=== PATIENT | female | born 1955 | race Caucasian/White ===

== ENCOUNTER 2019-05-09 09:24 | Inpatient (IN) ==
[2019-05-09] MEDS ORDERED: *HR* Rocuronium Bromide 50 MG/5 ML VIAL ONE (09:50)
[2019-05-09] MEDS ORDERED: Lidocaine -MPF 2% 2 ML VIAL ONE (09:50)
[2019-05-09] MEDS ORDERED: Lidocaine -MPF 4% 5 ML AMPUL ONE ×2 (09:50→10:14)
[2019-05-09] MEDS ORDERED: *HR* Midazolam HCl 2 MG/2 ML VIAL ONE (09:51)
[2019-05-09] MEDS ORDERED: *HR* FentaNYL (PF) 100 MCG/2 ML VIAL ONE (09:51)
[2019-05-09] MEDS ORDERED: *HR* Propofol 200 MG/20 ML VIAL IVP ONE (09:52)
--- NOTE | 2019-05-09 09:52 | Anesthesia Evaluation PreOp ---
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: Denies Any Significant HX Other Medical History: Diabetes Type II Anesthesia History: No Prior Anesthetic Complications, Past Anesthesia Alcohol Use: occasionally Drug use: none Medications and Allergies Albuterol Sulfate [Proair Hfa] 2 inh PO Q6H PRN 04/09/16 [History] Aspirin 81 mg PO DAILY 04/09/16 [History] NIFEdipine [Procardia] 10 mg PO DAILY 04/09/16 [History] metFORMIN [Glucophage] 1,000 mg PO BID 04/09/16 [History] Tiotropium [Spiriva] 18 mcg IH DAILY 06/08/16 [History] Albuterol Neb 05/09/18 [History] Amitriptyline 05/09/18 [History] Glycerin/Min Oil/Polycarbophil [Replens Vaginal Applicator] 1 appl VG 3XW #1 bottle 08/22/18 [Rx] Amoxicillin [Amoxil] 500 mg PO Q8HR #30 capsule 04/07/19 [Rx] Allergy/AdvReac Type Severity Reaction Status Date / Time Erythromycin Base Allergy Palpitations, Verified 05/09/19 09:57 HEART RACED guaifenesin [From Mucinex] Allergy "NOSE Verified 05/09/19 09:57 FALLING OFF" latex Allergy Rash Verified 05/09/19 09:57 promethazine [From Phenergan] Allergy UNKNOWN Verified 05/09/19 09:57 sulfamethoxazole Allergy UNKNOWN Verified 05/09/19 09:57 [From Bactrim] trimethoprim [From Bactrim] Allergy UNKNOWN Verified 05/09/19 09:57 valacyclovir [From Valtrex] Allergy Hives Verified 04/07/19 08:09 pseudoephedrine AdvReac FELT Verified 05/09/19 09:57 [From Sudafed] "GOOFY" - Meds/Allergy Pre-op Review Medications Reviewed: Yes Allergies Reviewed: Yes Beta Blockers on Current Med List: No Anesthesia Results - Labs Laboratory Tests 03/26/19 04/24/19 04/24/19 13:51 07:30 07:34 WBC 9.6 Hgb 13.7 Hct 41.9 Plt Count 286 PT 14.0 H INR 1.2 Sodium 140 Potassium 4.1 BUN 13 Creatinine 0.68 - Imaging EKG: report reviewed (03/26/2019 SINUS RHYTHM) Additional studies: 03/25/[address] IMPRESSION: Enlarging spiculated left upper lobe nodule, measuring 1.0 x 0.9 x 1.0 cm, concerning for primary bronchogenic carcinoma. PET/CT and/or tissue sampling is recommended. No evidence of intrathoracic lymphadenopathy. Anesthesia Exam O2 Sat Height 1.55 m Weight 65.317 kg O2 Sat by Pulse Oximetry 96 Vital Signs Temp Pulse Resp BP Pulse Ox 98 F 98 16 89/56 96 05/09/19 10:02 05/09/19 10:02 05/09/19 10:02 05/09/19 10:02 05/09/19 10:02 Blood Glucose* 150 Height: 5'1'' Weight: 144 lbs NPO (# of Hours): 8 Pain Scale: 0 Pain Scale Used: Numeric (1 - 10) - HEENT Pupil (Motor): EOMI Mallampati: II Teeth: Poor dentition Oral Opening: Greater than 3 - LENS COATING TECHNICIAN LOC: Oriented LENS COATING TECHNICIAN Motor: Normal RUE, Normal LUE, Normal RLE, Normal LLE, Normal Face LENS COATING TECHNICIAN Sensory: Normal: RUE, LUE, RLE, LLE, Face - Cardiac Rhythm: Regular Murmur: None - Pulmonary Breath Sounds: bilateral Clear Respiratory Effort: Symmetrical Anesthesia Assess/Plan ASA Score: 3 Level of consciousness: Cooperative, Oriented, Tranquil Anesthetic Plan: General Monitoring Plan: Standard Monitors Recovery Plan: PACU
[2019-05-09] MEDS ORDERED: Dexamethasone 4 MG/ML VIAL ONE (09:54)
[2019-05-09] MEDS ORDERED: CeFAZolin Syr 2,000MG/20 ML 2,000 MG/20 ML SYRINGE IVPB ONE (10:05)
[2019-05-09] MEDS ORDERED: Albuterol 2.5 MG/3 ML NEBULIZER IH ONE (10:05)
[2019-05-09] MEDS ORDERED: Acetaminophen IV 1,000 MG/100 ML INFUS..BTL ONE (10:09)
--- NOTE | 2019-05-09 10:09 | History & Physical Report ---
Date of Encounter: 05/09/19 Time of Encounter: 10:09 24 Hour HP Update - Instructions Instructions: If the History and Physical is less than 30 days old and was completed prior to A.M. admission and or procedure and has NOT been updated on calendar day of procedure please complete this update prior to performing procedure. - Update Patient reports changes in Medical Condition: No Changes in examination, assessment, or condition: No Changes in Medication: No Preop tests/diagnostics Reviewed: Yes Pre-Op MRSA Screen: Negative Surgery Remains Indicated: Yes Consent for Planned Operative Procedure(s) Verified: Yes - Pre-Operative Checklist Preoperative Checklist Indicated: Yes Prophylactic Antibiotic Ordered: Yes Home Medications Include Beta Blas: No Beta Blas Taken Today (Day of Surgery): No Beta Blas Taken Yesterday (Day Prior to Surgery): No Is VTE Prophylaxis Indicated?: Yes
[2019-05-09] MEDS ORDERED: Albuterol 2.5 MG/3 ML NEBULIZER ONE (10:10)
[2019-05-09] MEDS ORDERED: *HR* OxyCODONE Immed Rel 5 MG TABLET PO PRN (10:11)
[2019-05-09] MEDS ORDERED: Ringers Solution, Lactated 1,000 ML IVC SCH (10:15)
[2019-05-09] MEDS ORDERED: *HR* PHENYLEPHRINE 1,000 MCG/10 ML SYRINGE IVP ONE ×2 (11:14→11:46)
[2019-05-09] MEDS ORDERED: EPHEDrine 50 MG/ML VIAL ONE (11:18)
[2019-05-09] MEDS ORDERED: *HR* Vasopressin 20 UNIT/ML VIAL ONE (11:50)
[2019-05-09] MEDS ORDERED: Ketorolac 30 MG/ML VIAL ONE (12:22)
--- NOTE | 2019-05-09 13:12 | Operative Note ---
Date of procedure: 05/09/19 Pre-op diagnosis: c34.12 Post-op diagnosis: same Procedure: bronch with aspir, robotic wedge, lobe, node disseciton Anesthesia: GETA Local Anesthetics: 0.5% Sensorcaine HCL SubQ (cc) Surgeon: Lokesh Johnston Was there an assistant front office manager present: No Estimated blood loss (cc): 10 Specimen: wedge, lobe, nodes [id number]. Condition: stable Disposition: PACU Procedure in Detail: The patient was brought to the operating room and placed on the operating table in the supine position. After undergoing general anesthesia with sequential compressive devices on bilateral lower extremities and perioperative antibiotics on board, bronchoscopy was performed and extremely thick copious secretions which clogged the endotracheal tube and the camera were removed until clear. Were no abnormal branching patterns of the tracheobronchial tree and no obstructing masses. Patient was placed on the operating room table in the right lateral decubitus position with care to pad all pressure points. Prepped and draped in the usual sterile fashion. Thoracoscopy ports were placed, and the da Gabi robot was docked. A wedge resection of the left upper lobe to include the new mass was obtained with intraoperative frozen sections demonstrating non- small cell lung cancer. From this point artery bronchus vein and fissure completed with the endothoracic stapler and the remaining lobe removed. The inferior pulmonary ligament was mobilized. Lymph nodes were were removed from stations 5, 6, 10, 8. No stasis and pneumostasis was excellent fibrillar was placed over the staple line. Paravertebral nerve blocks performed. A 28-[place] chest tube placed through the most anterior thoracoscopy incision after de- docking the robot. Remaining incisions were closed 0 Vicryl and 4-0 Monocryl subcuticular stitches with dressings consisting of Steri-Strips and sterile gauze. Chest tube was secured and to place with a #2 Ethibond suture. Patient was extubated and taken to the recovery room.
[2019-05-09] MEDS: *HR* HYDROmorphone (PF) 1 MG/ML SYRINGE IVP PRN ×2 (13:33→13:38)
[2019-05-09] MEDS ORDERED: Naloxone 0.4 MG/ML INJ IVP PRN (15:27)
[2019-05-09] MEDS ORDERED: Ondansetron 4 MG/2 ML VIAL IVP PRN (15:27)
--- NOTE | 2019-05-09 16:35 | Anesthesia Evaluation Post Op ---
Date of Encounter: 05/09/19 Time of Encounter: 14:20 - Discharge PostOp Status: Transfer Patient to floor (Patient's vital signs have been reviewed. Patient is stable postoperatively and has adequately recovered from anesthesia. Patient is determined to have stable airway patency and respiratory function including respiratory rate and oxygen saturation. Patient has a stable heart rate, blood pressure and adequate hydration. Patients mental status is acceptable. Patients temperature is appropriate. Pain and nausea are adequately controlled.)
[2019-05-09] MEDS: *HR* HYDROcodone/Acet 5/325 mg TABLET PO PRN ×2 (17:11→20:53)
[2019-05-09] MEDS: Ketorolac 15 MG/ML VIAL IVP SCH (17:11)
[2019-05-09] MEDS: Famotidine 20 MG TABLET PO SCH (17:11)
[2019-05-09] MEDS: 0.9 % Sodium Chloride 1,000 ML IVC SCH (17:15)
[2019-05-09] MEDS: Gabapentin 300 MG CAPSULE PO SCH ×2 (17:16→20:53)
[2019-05-09] MEDS: *HR* Heparin 5,000 UNIT/ML VIAL SQ SCH ×2 (17:18→20:55)
[2019-05-09] MEDS: Ipratropium/Albuterol Neb 3 ML IH SCH ×2 (17:37→20:23)
[2019-05-09] MEDS: *HR* Metformin 500 MG TABLET PO SCH (20:52)
[2019-05-09] MEDS: Sennosides/Docusate Sodium TABLET PO SCH (20:53)
[2019-05-10] MEDS: Ipratropium/Albuterol Neb 3 ML IH SCH ×7 (00:07→20:55)
[2019-05-10] MEDS: Ketorolac 15 MG/ML VIAL IVP SCH ×5 (00:49→23:56)
[2019-05-10] MEDS: 0.9 % Sodium Chloride 1,000 ML IVC SCH (03:48)
[2019-05-10] MEDS: *HR* HYDROcodone/Acet 5/325 mg TABLET PO PRN ×3 (03:48→21:37)
[2019-05-10 05:08] LABS: Hematocrit 33.6 % (35.3-44.9); Hemoglobin 10.7 g/dL (11.5-15.4); Mean Corpuscular HGB Conc 31.8 g/dL (31.6-35.5); Mean Corpuscular Hemoglobin 31.6 pg (28.0-33.3); Mean Corpuscular Volume 99.1 fL (83.0-100.0); Mean Platelet Volume 11.7 fL (9.4-12.4); Platelet Count 224 K/mcL (140-400); Red Blood Count 3.39 M/mcL (3.82-4.97); Red Cell Distribution Width 13.3 % (11.5-14.5); White Blood Count 12.6 K/mcL (4.3-11.1)
[2019-05-10 05:14] LABS: % Iron Saturation 7 % (15-50); BUN/Creatinine Ratio 13 (6-26); Blood Urea Nitrogen 9 mg/dL (8-23); Calcium 9.2 mg/dL (8.6-10.3); Carbon Dioxide 25 mEq/L (23-29); Chloride 100 mEq/L (98-107); Glucose 171 mg/dL (70-105); Iron 19 mcg/dL (50-170); Magnesium 1.5 mg/dL (1.6-2.6); Osmolality,Calculated 297 (280-300); Potassium 3.9 mEq/L (3.5-5.1); Sodium 142 mEq/L (136-145); Transferrin 202 mg/dL (203-362); eGFR For African Americans > 60 (> 60); eGFR For Non-African Americans > 60 (> 60)
[2019-05-10] MEDS: *HR* Heparin 5,000 UNIT/ML VIAL SQ SCH ×3 (05:34→21:18)
[2019-05-10] MEDS: Aspirin 81 MG TAB.CHEW PO SCH (08:06)
[2019-05-10] MEDS: NIFEdipine XL (24 HR) 30 MG TAB.ER.24 PO SCH (08:06)
[2019-05-10] MEDS: *HR* Metformin 500 MG TABLET PO SCH ×2 (08:06→21:18)
[2019-05-10] MEDS: Gabapentin 300 MG CAPSULE PO SCH ×4 (08:06→23:56)
[2019-05-10] MEDS: Famotidine 20 MG TABLET PO SCH ×2 (08:06→15:39)
[2019-05-10] MEDS: Sennosides/Docusate Sodium TABLET PO SCH ×2 (08:09→21:17)
[2019-05-10] MEDS: Tiotropium 18 MCG inhalation IH SCH (08:59)
[2019-05-10] MEDS ORDERED: TIOTROPIUM 18 MCG IH SCH (09:00)
[2019-05-10] MEDS ORDERED: MAGNESIUM SULFATE IVPB ONE (09:14)
[2019-05-10] MEDS ORDERED: Iron Sucrose Complex 400 MG in 0.9 % Sodium Chloride 250 ML IVPB ONE (09:14)
[2019-05-10] MEDS ORDERED: SODIUM CHLORIDE 0.9% IVPB ONE (09:14)
--- NOTE | 2019-05-10 09:22 | Cardiothoracic Progress Note ---
Date of Encounter: 05/10/19 Time of Encounter: 09:20 - Assessment and plan (1) Cancer of upper lobe of left lung Current Visit: Yes Status: Acute The assessment and plan as outlined above was discussed with the patient and/or family members who expressed understanding and agreement. All questions were answered. stop ivf. replace mg (2) Iron deficiency anemia secondary to inadequate dietary iron intake Current Visit: No Status: Chronic The assessment and plan as outlined above was discussed with the patient and/or family members who expressed understanding and agreement. All questions were answered. replace mg (3) NIDDY (non-insulin dependent diabetes mellitus in young) Current Visit: No Status: Chronic The assessment and plan as outlined above was discussed with the patient and/or family members who expressed understanding and agreement. All questions were answered. continue metformin. preop lft normal Vital Signs, Last 4 Hours Temp Pulse Resp BP Pulse Ox 05/10/19 08:47 16 100 05/10/19 08:00 98.2 F 88 19 117/50 99 05/10/19 06:00 95 14 99 Oxgyen Flow Rate Oxygen Flow Rate (LPM) 2 Clinical Data, last 8 Hours Output, Chest Tube Drainage 8 Amount [Left Lateral Chest #1] Output, Urine Amount 900 Output, Urine Amount 800 Weight 05/08/19 05/09/19 05/10/19 23:59 23:59 23:59 Weight 65.317 kg 77.9 kg - Physical Examination General: Conversant, No Apparent Distress, Well developed, Well nourished HEENT: Atraumatic, Normocephaly Cardiac: Reg Rate and Rhythm, Normal S1 and S2 Incision: No signs of infection, Dry/intact dressing Chest tubes: Minimal drainage Lungs: Normal Breath Sounds Neuro: Alert and responsive, No focal deficits noted, Cranial nerves intact, Motor nerves intact Abdomen: Soft, Non-tender, Other (bs normal ) - Labs 05/10/19 04:25 05/10/19 04:25 Lab Results, Last 24 hours 05/10/19 05/10/19 04:25 04:25 WBC 12.6 H Hgb 10.7 L Hct 33.6 L Plt Count 224 Sodium 142 Potassium 3.9 Chloride 100 Carbon Dioxide 25 BUN 9 Creatinine 0.69 Glucose 171 H Calcium 9.2 Magnesium 1.5 L - Imaging Chest Xray: image reviewed Consult Discharge Plan - Plan Referrals: Blanca Donahue MD [Primary Care Provider] -
[2019-05-11] MEDS: Ipratropium/Albuterol Neb 3 ML IH SCH ×6 (00:23→20:25)
[2019-05-11] MEDS: *HR* HYDROcodone/Acet 5/325 mg TABLET PO PRN ×2 (03:52→09:06)
[2019-05-11] MEDS: Ketorolac 15 MG/ML VIAL IVP SCH ×3 (06:04→18:27)
[2019-05-11] MEDS: *HR* Heparin 5,000 UNIT/ML VIAL SQ SCH ×3 (06:04→22:00)
[2019-05-11] MEDS: Famotidine 20 MG TABLET PO SCH ×2 (06:04→16:21)
[2019-05-11] MEDS: Tiotropium 18 MCG inhalation IH SCH (08:08)
[2019-05-11] MEDS: *HR* Metformin 500 MG TABLET PO SCH ×2 (09:05→22:00)
[2019-05-11] MEDS: NIFEdipine XL (24 HR) 30 MG TAB.ER.24 PO SCH (09:06)
[2019-05-11] MEDS: Aspirin 81 MG TAB.CHEW PO SCH (09:06)
[2019-05-11] MEDS: Gabapentin 300 MG CAPSULE PO SCH ×3 (09:06→22:00)
[2019-05-11] MEDS: Sennosides/Docusate Sodium TABLET PO SCH ×2 (09:06→22:00)
--- NOTE | 2019-05-11 09:32 | Cardiothoracic Progress Note ---
Date of Encounter: 05/11/19 Time of Encounter: 09:30 - Assessment and plan (1) Cancer of upper lobe of left lung Current Visit: Yes Status: Acute The assessment and plan as outlined above was discussed with the patient and/or family members who expressed understanding and agreement. All questions were answered. start miralax replace k (2) Iron deficiency anemia secondary to inadequate dietary iron intake Current Visit: No Status: Chronic The assessment and plan as outlined above was discussed with the patient and/or family members who expressed understanding and agreement. All questions were answered. 2nd iron tomorrow. (3) NIDDY (non-insulin dependent diabetes mellitus in young) Current Visit: No Status: Chronic The assessment and plan as outlined above was discussed with the patient and/or family members who expressed understanding and agreement. All questions were answered. continue metformin. preop lft normal Vital Signs, Last 4 Hours Temp Pulse Resp BP Pulse Ox 05/11/19 07:43 98.4 F 91 18 118/65 91 Oxgyen Flow Rate Oxygen Flow Rate (LPM) 2 Clinical Data, last 8 Hours Output, Chest Tube Drainage 80 Amount [Left Lateral Chest #1] Weight 05/09/19 05/10/19 05/11/19 23:59 23:59 23:59 Weight 65.317 kg 77.9 kg 71.7 kg - Physical Examination General: Conversant, No Apparent Distress, Well developed, Well nourished HEENT: Atraumatic, Normocephaly Cardiac: Reg Rate and Rhythm, Normal S1 and S2 Incision: No signs of infection, Dry/intact dressing, Open to air Chest tubes: Minimal drainage, Air leak Lungs: Normal Breath Sounds Neuro: Alert and responsive, No focal deficits noted, Cranial nerves intact Abdomen: Soft, Non-tender, Other (hypoactive. no flatus or bm. ) - Labs 05/10/19 04:25 05/10/19 04:25 Consult Discharge Plan - Plan Referrals: Blanca Donahue MD [Primary Care Provider] -
[2019-05-12] MEDS: Ketorolac 15 MG/ML VIAL IVP SCH ×4 (00:09→18:03)
[2019-05-12] MEDS: Ipratropium/Albuterol Neb 3 ML IH SCH ×5 (00:23→21:41)
[2019-05-12] MEDS ORDERED: Ipratropium/Albuterol Neb 3 ML IH PRN (04:34)
[2019-05-12] MEDS: *HR* Heparin 5,000 UNIT/ML VIAL SQ SCH ×3 (05:43→21:18)
[2019-05-12] MEDS: Aspirin 81 MG TAB.CHEW PO SCH (08:22)
[2019-05-12] MEDS: *HR* Metformin 500 MG TABLET PO SCH ×2 (08:22→21:17)
[2019-05-12] MEDS: Famotidine 20 MG TABLET PO SCH ×2 (08:22→16:28)
[2019-05-12] MEDS: Sennosides/Docusate Sodium TABLET PO SCH ×2 (08:23→21:18)
[2019-05-12] MEDS: NIFEdipine XL (24 HR) 30 MG TAB.ER.24 PO SCH (08:23)
[2019-05-12] MEDS: *HR* HYDROcodone/Acet 5/325 mg TABLET PO PRN (08:23)
[2019-05-12] MEDS: Gabapentin 300 MG CAPSULE PO SCH ×3 (08:23→21:17)
--- NOTE | 2019-05-12 08:57 | Cardiothoracic Progress Note ---
Date of Encounter: 05/12/19 Time of Encounter: 08:55 - Assessment and plan (1) Cancer of upper lobe of left lung Current Visit: Yes Status: Acute The assessment and plan as outlined above was discussed with the patient and/or family members who expressed understanding and agreement. All questions were answered. continue current care (2) Iron deficiency anemia secondary to inadequate dietary iron intake Current Visit: No Status: Chronic The assessment and plan as outlined above was discussed with the patient and/or family members who expressed understanding and agreement. All questions were answered. 2nd iron today. (3) NIDDY (non-insulin dependent diabetes mellitus in young) Current Visit: No Status: Chronic The assessment and plan as outlined above was discussed with the patient and/or family members who expressed understanding and agreement. All questions were answered. continue metformin. preop lft normal Vital Signs, Last 4 Hours Temp Pulse Resp BP Pulse Ox 05/12/19 07:30 98.5 F 80 18 127/73 95 Oxgyen Flow Rate Oxygen Flow Rate (LPM) 3 Clinical Data, last 8 Hours Output, Chest Tube Drainage 10 Amount [Left Lateral Chest #1] Output, Chest Tube Drainage 30 Amount [Left Lateral Chest #1] Weight 05/10/19 05/11/19 05/12/19 23:59 23:59 23:59 Weight 77.9 kg 71.7 kg 71.8 kg - Physical Examination General: Conversant, No Apparent Distress, Well developed, Well nourished HEENT: Atraumatic, Normocephaly Cardiac: Reg Rate and Rhythm, Normal S1 and S2 Chest tubes: Minimal drainage, Air leak Neuro: Alert and responsive, No focal deficits noted, Cranial nerves intact, Motor nerves intact - Labs 05/10/19 04:25 05/10/19 04:25 - Imaging Chest Xray: image reviewed Consult Discharge Plan - Plan Referrals: Blanac Donahue MD [Primary Care Provider] -
[2019-05-12] MEDS ORDERED: Iron Sucrose Complex 400 MG in 0.9 % Sodium Chloride 250 ML IVPB ONE ×2 (08:58→09:29)
[2019-05-12] MEDS: Acetylcysteine 10% 2 ML INHSOL IH SCH ×3 (10:34→21:41)
[2019-05-12] MEDS: Tiotropium 18 MCG inhalation IH SCH (10:45)
[2019-05-13] MEDS: Ketorolac 15 MG/ML VIAL IVP SCH ×4 (00:03→19:15)
[2019-05-13] MEDS: Ipratropium/Albuterol Neb 3 ML IH SCH ×4 (03:46→21:39)
[2019-05-13] MEDS: Acetylcysteine 10% 2 ML INHSOL IH SCH ×4 (03:46→21:39)
[2019-05-13] MEDS: *HR* Heparin 5,000 UNIT/ML VIAL SQ SCH ×3 (05:37→21:53)
[2019-05-13] MEDS: Famotidine 20 MG TABLET PO SCH ×2 (08:40→19:14)
[2019-05-13] MEDS: NIFEdipine XL (24 HR) 30 MG TAB.ER.24 PO SCH (08:40)
[2019-05-13] MEDS: Gabapentin 300 MG CAPSULE PO SCH ×3 (08:41→21:51)
[2019-05-13] MEDS: Aspirin 81 MG TAB.CHEW PO SCH (08:41)
[2019-05-13] MEDS: *HR* Metformin 500 MG TABLET PO SCH ×2 (08:41→21:52)
[2019-05-13] MEDS: Sennosides/Docusate Sodium TABLET PO SCH ×2 (08:41→21:51)
[2019-05-13] MEDS: Tiotropium 18 MCG inhalation IH SCH (09:38)
[2019-05-13] MEDS ORDERED: Bisacodyl 10 MG RECTAL SUPPOSITORY RC PRN (12:24)
--- NOTE | 2019-05-13 13:20 | Cardiothoracic Progress Note ---
Date of Encounter: 05/13/19 Time of Encounter: 13:18 - Assessment and plan (1) Cancer of upper lobe of left lung Current Visit: Yes Status: Acute The assessment and plan as outlined above was discussed with the patient and/or family members who expressed understanding and agreement. All questions were answered. mgcitrate for bm (2) Iron deficiency anemia secondary to inadequate dietary iron intake Current Visit: No Status: Chronic The assessment and plan as outlined above was discussed with the patient and/or family members who expressed understanding and agreement. All questions were answered. 2nd iron today. (3) NIDDY (non-insulin dependent diabetes mellitus in young) Current Visit: No Status: Chronic The assessment and plan as outlined above was discussed with the patient and/or family members who expressed understanding and agreement. All questions were answered. continue metformin. preop lft normal Vital Signs, Last 4 Hours Temp Pulse Resp BP Pulse Ox 05/13/19 11:55 98.0 F 80 18 139/77 96 05/13/19 09:30 16 133/79 96 Oxgyen Flow Rate Oxygen Flow Rate (LPM) 0 Clinical Data, last 8 Hours Output, Chest Tube Drainage 15 Amount [Left Lateral Chest #1] Output, Chest Tube Drainage 15 Amount [Left Lateral Chest #1] Output, Urine Amount 900 Weight 05/11/19 05/12/19 05/13/19 23:59 23:59 23:59 Weight 71.7 kg 71.8 kg 69.1 kg - Physical Examination General: Conversant, No Apparent Distress, Well developed, Well nourished HEENT: Atraumatic, Normocephaly Cardiac: Reg Rate and Rhythm Incision: No signs of infection, Dry/intact dressing Chest tubes: Minimal drainage, Air leak Lungs: Normal Breath Sounds Neuro: Alert and responsive, No focal deficits noted - Labs 05/10/19 04:25 05/10/19 04:25 Consult Discharge Plan - Plan Referrals: Blanca Donahue MD [Primary Care Provider] -
[2019-05-14] MEDS: *HR* HYDROcodone/Acet 5/325 mg TABLET PO PRN (00:13)
[2019-05-14] MEDS: Ketorolac 15 MG/ML VIAL IVP SCH ×2 (01:27→06:28)
[2019-05-14] MEDS: Acetylcysteine 10% 2 ML INHSOL IH SCH (03:31)
[2019-05-14] MEDS: Ipratropium/Albuterol Neb 3 ML IH SCH (03:31)
[2019-05-14] MEDS: *HR* Heparin 5,000 UNIT/ML VIAL SQ SCH (06:27)
[2019-05-14] MEDS: Famotidine 20 MG TABLET PO SCH (06:28)
[2019-05-14 08:42] VITALS: BP 132/61
[2019-05-14] MEDS: Gabapentin 300 MG CAPSULE PO SCH (09:15)
[2019-05-14] MEDS: NIFEdipine XL (24 HR) 30 MG TAB.ER.24 PO SCH (09:15)
[2019-05-14] MEDS: *HR* Metformin 500 MG TABLET PO SCH (09:15)
[2019-05-14] MEDS: Aspirin 81 MG TAB.CHEW PO SCH (09:15)
[2019-05-14] MEDS: Sennosides/Docusate Sodium TABLET PO SCH (09:15)
--- NOTE | 2019-05-14 09:55 | Discharge Summary ---
Date of Encounter: 05/14/19 Time of Encounter: 09:54 - Discharge Diagnosis (1) Cancer of upper lobe of left lung Priority: Primary Status: Acute (2) Iron deficiency anemia secondary to inadequate dietary iron intake Priority: Secondary Status: Chronic (3) NIDDY (non-insulin dependent diabetes mellitus in young) Priority: Secondary Status: Chronic - Hospital Course Hospital course: Ms. Curtis is a 63 year old female - Time Spent with Patient Total time spent providing and/or coordinating discharge services: - Discharge Medications Prescriptions: No Action NIFEdipine [Procardia] 60 mg PO DAILY metFORMIN [Glucophage] 1,000 mg PO BID Aspirin 81 mg PO DAILY Tiotropium [Spiriva] 18 mcg IH DAILY Albuterol Neb [Proventil Neb] 2.5 mg IH Q4HR PRN PRN Reason: Shortness Of Breath Hydrocodone Bit/Homatrop Me-Br [Hydrocodone-Homatropine Syrup] 5 ml PO Q4-6H PRN PRN Reason: Cough Polyethylene Glycol 3350 [MiraLAX] 17 gm PO DAILY PRN PRN Reason: Constipation Pravastatin Sodium [Pravachol] 80 mg PO DAILY Benzonatate [Tessalon] 100 mg PO TID PRN PRN Reason: Cough Albuterol Sulfate [Proair Hfa] 1 puff IH Q6H PRN PRN Reason: Shortness Of Breath Amitriptyline HCl 150 mg PO HS Estradiol 1 appl TD 2XW Home Medications: Aspirin 81 mg PO DAILY 04/09/16 [History] NIFEdipine [Procardia] 60 mg PO DAILY 04/09/16 [History] metFORMIN [Glucophage] 1,000 mg PO BID 04/09/16 [History] Tiotropium [Spiriva] 18 mcg IH DAILY 06/08/16 [History] Albuterol Neb [Proventil Neb] 2.5 mg IH Q4HR PRN 05/09/19 [History] Albuterol Sulfate [Proair Hfa] 1 puff IH Q6H PRN 05/09/19 [History] Benzonatate [Tessalon] 100 mg PO TID PRN 05/09/19 [History] Hydrocodone Bit/Homatrop Me-Br [Hydrocodone-Homatropine Syrup] 5 ml PO Q4-6H PRN 05/09/19 [History] Polyethylene Glycol 3350 [MiraLAX] 17 gm PO DAILY PRN 05/09/19 [History] Pravastatin Sodium [Pravachol] 80 mg PO DAILY 05/09/19 [History] Amitriptyline HCl 150 mg PO HS 05/10/19 [History] Estradiol 1 appl TD 2XW 05/10/19 [History] Allergies/Adverse Reactions: Allergy/AdvReac Type Severity Reaction Status Date / Time Erythromycin Base Allergy Palpitations, Verified 05/10/19 17:04 HEART RACED guaifenesin [From Mucinex] Allergy "NOSE Verified 05/10/19 17:04 FALLING OFF" latex Allergy Rash Verified 05/10/19 17:04 promethazine [From Phenergan] Allergy UNKNOWN Verified 05/10/19 17:04 sulfamethoxazole Allergy UNKNOWN Verified 05/10/19 17:04 [From Bactrim] trimethoprim [From Bactrim] Allergy UNKNOWN Verified 05/10/19 17:04 valacyclovir [From Valtrex] Allergy Hives Verified 05/10/19 17:04 pseudoephedrine AdvReac FELT Verified 05/10/19 17:04 [From Sudafed] "GOOFY" Date of admission: 05/09/19 14:19 Primary care physician: Blanca Donahue Physical Examination Vital Signs, Last 4 Hours Temp Pulse Resp BP Pulse Ox 05/14/19 09:47 98.3 F 84 18 132/61 98 05/14/19 08:33 98.3 F 84 18 132/61 98 General: Conversant, No Apparent Distress, Well developed, Well nourished HEENT: Atraumatic, Normocephaly Cardiac: Reg Rate and Rhythm, Normal S1 and S2 Lungs: Normal Breath Sounds Neuro: Alert and responsive, No focal deficits noted, Cranial nerves intact, Motor nerves intact Abdomen: Soft, Non-tender Skin: No rashes noted on visualized skin Extremities: No Edema - Patient Status Disposition: Home, Self-Care Condition: Good Functional capacity at discharge: independent ambulation Overall status at discharge: patient is progressing back to baseline - Discharge Instructions Follow Up With: Blanca Donahue MD [Primary Care Provider] - 05/20/19 8:00 am Lokesh Johnston MD [Partnered Physician] - - Diet and Activity Activity: other (no driving if taking narcotics. no airline travel for 1 month. ) Diet: diabetic diet Additional instructions: change gauzes as needed.
== END 2019-05-14 11:12 | disposition home or self-care (01) | DRG 165 ==
LOC: SAMDAY 09:24 → ICNU 14:19 → 2NNU 05-10 20:44
PROVIDERS: ADMIT Thoracic Surgery (Cardiothoracic Vascular Surgery); ATTEND Thoracic Surgery (Cardiothoracic Vascular Surgery)